=== PATIENT | male | born 1960 | race Caucasian/White ===

== ENCOUNTER 2022-06-10 10:52 | Emergency (ER) | payer SELFPAY ==
[2022-06-10] MEDS ORDERED: Albuterol/Ipratropium 3.0-0.5 MG/3 ML Neb Soln NEB ONE (10:54)
[2022-06-10] MEDS ORDERED: Morphine 2 MG/ML SYRINGE IVPUSH ONE (10:55)
[2022-06-10] MEDS ORDERED: Furosemide 40 MG/4 ML VIAL IVPUSH ONE (10:55)
[2022-06-10] MEDS ORDERED: EPINEPHrine 1:10,000 1 MG/10 ML Syringe IVPUSH ONE ×4 (11:04→14:03)
[2022-06-10] MEDS ORDERED: Amiodarone 300 MG in Dextrose 5% in Water 100 ML IV SCH ×2 (14:15)
== END 2022-06-10 11:23 | disposition expired ==
LOC: LB.ED 10:52
DX: J96.21 Acute and chronic respiratory failure with hypoxia (principal)
CPT/HCPCS: 92950; 96374; 96375; 99285-25; J0171; J1940; J2270; J7620